=== PATIENT | male | born 1970 | race Caucasian/White ===

== ENCOUNTER 2017-11-05 14:52 | Emergency (ER) | payer BC ==
[2017-11-05] MEDS ORDERED: Cyclobenzaprine TAB* 10 MG PO ONE (16:37)
[2017-11-05] MEDS ORDERED: Ibuprofen TAB* 400 MG PO ONE (16:38)
[2017-11-05] MEDS ORDERED: HYDROcodone/ACETAMIN 5-325 MG* 1 TAB PO ONE (16:38)
--- NOTE | 2017-11-05 16:55 | ED ---
Back Pain - HPI Summary HPI Summary: 46 yr old male with the complaint of low back pain. The patient states he has pain in the lower back, worse with movement, and with pain 9/10, radiating down his right lateral thigh. Denies bowel, bladder incontinence. Denies weakness or numbness in the legs. Setting: He was cutting alot of wood yesterday and bending over with the chain saw and moving a lot of wood. He denies falls or trauma or injuries. he states his right hip has been hurting some lately and that he has been favoring it a little which he feels put him out of alignment some. He states he has a history of herniated lumbar disks. He denies fever, chills. He states he has no primary care doctor. - History of Current Complaint Chief Complaint: UCBackPain Stated Complaint: BACK SPASMS Time Seen by Provider: 11/05/17 16:27 - Allergies/Home Medications Allergies/Adverse Reactions: Allergies Allergy/AdvReac Type Severity Reaction Status Date / Time No Known Allergies Allergy Verified 11/05/17 16:20 Home Medications: Home Medications Aleve 220mg 440 mg PO ONCE PRN 11/05/17 [History Confirmed 11/05/17] Ibuprofen TAB* [Motrin TAB* 800 MG] 800 mg PO Q8H PRN 11/05/17 [History Confirmed 11/05/17] PMH/Surg Hx/FS Hx/Imm Hx Musculoskeletal History: Reports: Other Musculoskeletal History - prior lumbar herniated disks. Infectious Disease History: No Infectious Disease History: Denies: Traveled Outside the [place] in Last 30 Days - Family History Known Family History: Positive: Other - denies - Social History Occupation: Employed Full-time - [employer], [place] [employer] Alcohol Use: Occasionally Substance Use Type: Reports: None Smoking Status (MU): Never Smoked Tobacco Length of Time of Smoking/Using Tobacco: 2014 Review of Systems Constitutional: Negative Positive: Other - back pain Negative: Weakness, Numbness All Other Systems Reviewed And Are Negative: Yes Physical Exam Triage Information Reviewed: Yes Vital Signs On Initial Exam: Initial Vitals Temp Pulse Resp BP 99.5 F 73 22 165/107 11/05/17 16:13 11/05/17 16:13 11/05/17 16:13 11/05/17 16:13 Vital Signs Reviewed: Yes Appearance: Positive: Well-Appearing, No Pain Distress Skin: Positive: Warm Eyes: Positive: EOMI Respiratory/Lung Sounds: Positive: Other - normal effort Abdomen Description: Positive: Other: - obese Neurological: Positive: Sensory/Motor Intact, Alert, Oriented to Person Place, Time, CN Intact II-III, Normal Gait Psychiatric: Positive: Normal - Violet Coma Scale Best Eye Response: 4 - Spontaneous Best Motor Response: 6 - Obeys Commands Best Verbal Response: 5 - Oriented Diagnostics - Vital Signs Vital Signs Temp Pulse Resp BP 11/05/17 16:13 99.5 F 73 22 165/107 - Laboratory Lab Statement: Any lab studies that have been ordered have been reviewed, and results considered in the medical decision making process. - Radiology right hip, pelvis and lumbar spine Xray Interpretation: Positive (See Comments) Radiology Interpretation Completed By: Radiologist Back Pain Course/Dx - Course Course Of Treatment: 46 yr old male obese with low back pain. [id number] ISTOP reference number. No controlled substances. He has right hip pain as well for a while. Xrays of lumbar and right hip pelvis ordered. His Bp has been getting higher here. He is refusing transfer/transport by EMS to hospitals. Risk of stroke, Heart attack, disability, , delay care and diagnosis understood. present. - Diagnoses Provider Diagnoses: Back pain, Hip pain, right, Hypertension Discharge - Discharge Plan Condition: Good Disposition: AGAINST MEDICAL ADVICE Referrals: No Primary Care Phys,NOPCP [Primary Care Provider] -
--- NOTE | 2017-11-05 17:17 | RAD ---
INDICATION: Low back pain after change sine with the previous day COMPARISON: None. TECHNIQUE: 6 views of the lumbar spine were obtained. FINDINGS: The vertebra are in normal alignment. No fracture is seen. Mild degenerative changes include loss of intervertebral disc height and anterior marginal osteophyte formation at the lower anterior thoracic spine. IMPRESSION: Mild degenerative changes as described above without acute fracture or dislocation.
--- NOTE | 2017-11-05 17:17 | RAD ---
INDICATION: Right leg pain after cutting firewood COMPARISON: None TECHNIQUE: 3 views of the right hip were obtained. FINDINGS: The visualized bones of the right hip are well-corticated and properly aligned. Degenerative changes of the right hip include narrowing of the joint space with the appearance of bone on bone apposition, sclerotic change of the articulating services and marginal osteophyte formation.There is no radiographic evidence of acute fracture or dislocation. IMPRESSION: Degenerative changes of the right hip as described above. If the patient's symptoms persist follow-up imaging is recommended.
[2017-11-05 17:33] VITALS: BP 176/110
== END 2017-11-05 17:48 | disposition left against medical advice (07) ==
LOC: UCCORT 14:52
DX: M54.5 Low back pain (principal); M25.551 Pain in right hip; M16.11 Unilateral primary osteoarthritis, right hip; M51.37 Other intervertebral disc degeneration, lumbosacral region; I10 Essential (primary) hypertension
CPT/HCPCS: 72110; 99212; A9270-GY; G0463